=== PATIENT | male | born 1970 | race Caucasian/White ===

== ENCOUNTER 2017-07-24 02:26 | Emergency (ER) | payer BC, OTHER ==
[~2017-07-24] VITALS: Ht 175.3 cm; Wt 90.1 kg
[2017-07-24 02:30] VITALS: TEMP 36.4; Ht 175.3 cm; Wt 90.1 kg
[2017-07-24] MEDS ORDERED: SODIUM CHLORIDE 0.9% 1000ML 1,000 ML IV STA ×2 (02:35→03:30)
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
[2017-07-24] MEDS ORDERED: DIPHTHERIA/TETANUS/PERTUSSIS 0.5 ML SYR/VIAL IM. ONE (02:45)
[2017-07-24] MEDS ORDERED: OPTIRAY 320 IV PRN (02:45)
[2017-07-24 03:02] LABS: HEMATOCRIT 42.7 % (42-52); HEMOGLOBIN 14.9 g/dL (14.0-18.0); MEAN CELL VOLUME 88.6 fL (80-100); MEAN CORPUSCULAR HEMOGLOBIN 30.9 pg (25-34); MEAN CORPUSCULAR HGB CONC 34.9 g/dl (32-36); MEAN PLATELET VOLUME 8.6 fL (7.4-10.4); PLATELET COUNT 274 K/uL (130-400); RED CELL DISTRIBUTION WIDTH CV 12.3 % (11.5-14.5); RED CELL DISTRIBUTION WIDTH SD 39.4 fL (36.4-46.3); WHITE BLOOD COUNT 12.45 K/uL (4.8-10.8)
[2017-07-24 03:16] LABS: ISTAT CREATININE 1.4 mg/dl (0.6-1.3); ISTAT IONIZED CALCIUM 1.18 mmol/l (1.12-1.32); ISTAT POTASSIUM 3.5 mEq/L (3.3-5.0)
[2017-07-24 03:20] LABS: ALT/SGPT 50 U/L (12-78); AST/SGOT 48 U/L (15-37); BLOOD UREA NITROGEN 17 mg/dl (7-18); CALCIUM 8.4 mg/dl (8.5-10.1); CARBON DIOXIDE 24 mmol/L (21-32); CREATININE 1.16 mg/dl (0.60-1.40); GLUCOSE 123 mg/dl (70-99); POTASSIUM 3.6 mmol/L (3.5-5.1); SODIUM 139 mmol/L (136-145)
[2017-07-24 03:26] VITALS: PULSE 117; O2SAT 96
[2017-07-24 03:28] LABS: ALKALINE PHOSPHATASE 83 U/L (45-117); TOTAL PROTEIN 7.8 gm/dl (6.4-8.2)
[2017-07-24 03:29] LABS: BASO % 0.2 %; BASO ABS # 0.02 K/uL (0-0.2); EOS % 0.3 %; EOS ABS # 0.04 K/uL (0-0.5); IG# 0.08 K/uL (0.00-0.02); LYMPH % 7.6 %; LYMPH ABS # 0.95 K/uL (1.2-3.4); MONO % 7.1 %; MONO ABS # 0.88 K/uL (0.11-0.59); NEUT % 84.2 %; NEUT ABS # 10.48 K/uL (1.4-6.5)
[2017-07-24 03:35] VITALS: BP 175/111
[2017-07-24] MEDS ORDERED: ONDANSETRON INJ 2 MG/ML 2 ML VIAL IV STA (04:47)
[2017-07-24] MEDS ORDERED: MoRPHine SULFATE 10 MG/ML CARP/VIAL IV STA (04:47)
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
== END 2017-07-24 05:05 | disposition short-term general hospital (02) ==
LOC: EDBD 02:26 → C.EDA 02:27
DX: F10.129 Alcohol abuse with intoxication, unspecified (principal); Y90.6 Blood alcohol level of 120-199 mg/100 ml; S22.42XA Multiple fractures of ribs, left side, initial encounter for closed fracture; S09.90XA Unspecified injury of head, initial encounter; V49.9XXA Car occupant (driver) (passenger) injured in unspecified traffic accident, initial encounter; Y92.488 Other paved roadways as the place of occurrence of the external cause; Z23 Encounter for immunization; S00.81XA Abrasion of other part of head, initial encounter; S20.219A Contusion of unspecified front wall of thorax, initial encounter; S80.11XA Contusion of right lower leg, initial encounter; S60.212A Contusion of left wrist, initial encounter; R00.0 Tachycardia, unspecified

== ENCOUNTER → 2017-07-24 | Outpatient (CLI) | payer OTHER ==
[~2017-07-24] MED LIST: CEPH500C2 PO; HYDR-3714 PO
== END | disposition home or self-care (01) ==
LOC: C.LAB 02:50
DX: Z02.83 Encounter for blood-alcohol and blood-drug test (principal)

== ENCOUNTER → 2017-08-02 | Outpatient (CLI) | payer OTHER ==
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
== END | disposition home or self-care (01) ==
LOC: C.ULTR 19:50
PROVIDERS: ATTEND Family Medicine
DX: M79.604 Pain in right leg (principal)